=== PATIENT | male | born 1955 | race Caucasian/White ===

== ENCOUNTER → 2021-02-19 | Outpatient (CLI) | payer MEDICARE, BC | LOC: EXRD 10:41 | DX: H53.123 Transient visual loss, bilateral (principal); I65.23 Occlusion and stenosis of bilateral carotid arteries | CPT/HCPCS: 93880 ==

== ENCOUNTER 2021-05-20 15:06 | Emergency (ER) | payer MEDICARE, BC | END 2021-05-20 17:24 | disposition home or self-care (01) | LOC: ER1 15:06 | DX: S02.2XXA Fracture of nasal bones, initial encounter for closed fracture (principal); S20.212A Contusion of left front wall of thorax, initial encounter; S20.411A Abrasion of right back wall of thorax, initial encounter; Z79.82 Long term (current) use of aspirin; Y04.0XXA Assault by unarmed brawl or fight, initial encounter; Y92.009 Unspecified place in unspecified non-institutional (private) residence as the place of occurrence of the external cause | CPT/HCPCS: 70450; 70486; 71045; 72125; 90471; 96374; 96375; 99285; J1885 ==

== ENCOUNTER → 2021-12-11 | Outpatient (CLI) | payer MEDICARE, BC | LOC: EXRD 12:58 | DX: E03.8 Other specified hypothyroidism (principal); Z79.899 Other long term (current) drug therapy | CPT/HCPCS: 76536 ==